=== PATIENT | female | born 1990 | race Native Hawaiian/Other Pacific Islander ===

== ENCOUNTER 2017-08-04 09:31 | Emergency (ER) | payer OTHER ==
[~2017-08-04] VITALS: Ht 147.3 cm; Wt 47.1 kg
[2017-08-04] MEDS ORDERED: PRENTAB40 PO (09:40)
[2017-08-04 10:29] LABS: BASO # 0.1 10^3/uL (0.0-0.2); BASO % 0.9 % (0.0-1.0); EOS # 0.6 10^3/uL (0.0-0.50); IMMATURE GRANULOCYTE % 0.5 % (0-0); LYMPH % 30.5 % (24.0-44.0); MEAN CORPUSCULAR HEMOGLOBIN 29.1 pg (27.0-33.0); MEAN CORPUSCULAR HGB CONC 33.2 g/dl (32.0-36.5); MEAN CORPUSCULAR VOLUME 87.6 fl (80.0-96.0); MONO # 0.4 10^3/uL (0.0-0.8); MONO % 6.3 % (0.0-5.0); NEUTROPHILS # 3.5 10^3/uL (1.8-7.7); NEUTROPHILS % 52.8 % (36.0-66.0); PLATELET COUNT, AUTOMATED 301 10^3/uL (150-450); RED CELL DISTRIBUTION WIDTH 11.3 % (11.5-14.5); WHITE BLOOD COUNT 6.6 10^3/uL (4.0-10.0)
[2017-08-04 11:03] LABS: ANION GAP 7 MEQ/L (8-16); BLOOD UREA NITROGEN 11 MG/DL (7-18); CALCIUM LEVEL 9.3 MG/DL (8.5-10.1); CARBON DIOXIDE LEVEL 27 MEQ/L (21-32); CHLORIDE LEVEL 103 MEQ/L (98-107); CREATININE FOR GFR 0.46 MG/DL (0.55-1.02); GLOMERULAR FILTRATION RATE > 60.0 (>60); GLUCOSE, FASTING 73 MG/DL (70-105); HCG, SERUM QUANTITATIVE 4907 MIU/ML; POTASSIUM SERUM 3.5 MEQ/L (3.5-5.1); SODIUM LEVEL 137 MEQ/L (136-145)
--- NOTE | 2017-08-04 11:18 | REP ---
Clinical: Vaginal bleeding. Comparison: 08/01/2017. Technique: Transabdominal and transvaginal first trimester obstetrical ultrasound including color Doppler evaluation. Findings: Heterogeneous anteverted uterus measures approximately 9.0 x 7.6 x 4.3 cm. Two adjacent presumed gestational sacs are again suggested which contain irregular debris no definable yolk sac or pole. The more fundal sac has a mean sac diameter of 15.3 mm corresponding to 5-week 6 days gestational age while the more inferior sac has not sac diameter of 13.7 mm corresponding to 5 weeks 4 days gestational age. Right maternal ovary appears normal measuring 2.6 x 1.4 x 1.4 cm; RI = 0.64. Left maternal ovary not visualized. No significant pelvic fluid or adnexal mass lesion identified. Impression: Findings again suggest to adjacent gestational sacs with increased debris and no definable yolk sac or pole. Differential diagnosis includes early as well as blighted ovum/early spontaneous . Correlation with serial HCG levels and repeat evaluation may be warranted. Signed by Hemal Chaudhry MD 08/04/2017 11:10 A
[2017-08-04 12:00] VITALS: BP 100/55
== END 2017-08-04 12:01 | disposition home or self-care (01) ==
LOC: M ED 09:31
DX: O20.8 Other hemorrhage in early pregnancy (principal); Z3A.01 Less than 8 weeks gestation of pregnancy; Z79.899 Other long term (current) drug therapy

== ENCOUNTER → 2017-08-13 | Outpatient (REF) | payer OTHER ==
[~2017-08-13] MED LIST: BACT800T5 PO; PRENTAB40 PO
== END ==
LOC: M SFHCLERA 17:20
PROVIDERS: ATTEND Nurse Practitioner Family
DX: R30.0 Dysuria (principal)

== ENCOUNTER 2017-08-14 08:31 | Emergency (ER) | payer OTHER ==
[~2017-08-14] VITALS: Ht 147.3 cm; Wt 47.3 kg
[~2017-08-14 08:31] MED LIST changes: -BACT800T5 PO
--- NOTE | 2017-08-14 10:48 | REP ---
Clinical: Miscarriage with vaginal bleeding. Comparison: 08/04/2017. Technique: Transabdominal pelvic ultrasound followed by transvaginal examination for better evaluation of the endometrium and adnexa with color Doppler evaluation of the ovaries. Findings: Bladder is unremarkable and measures 7.6 x 5.5 x 1.7 cm. Heterogeneous anteverted septated uterus measures 8.5 x 4.4 x 5.1 cm. The endometrial complex measure 15 mm thickness on the right and 3.8 mm thickness on the left. The previously identified presumed twin gestational sacs are no longer evident. Bilateral ovaries are normal in appearance and vascularity without evidence for torsion. Right ovary measures 2.6 x 1.6 x 1.9 cm; R I = 0.66 . Left ovary measures 3.3 x 1.9 x 2.2 cm ; R I = 0.44 . No free fluid or discrete adnexal abnormality noted . Impression: 1. previously noted gestational sacs are no longer apparent and the right endometrial complex is thickened to 15 mm. Retained products of conception versus hemorrhagic debris/clot cannot definitively be excluded and correlation with serial HCG levels may be warranted. Signed by Hemal Chaudhry MD 08/14/2017 10:39 A
[2017-08-14 10:51] LABS: MEAN CORPUSCULAR HEMOGLOBIN 29.8 pg (27.0-33.0); MEAN CORPUSCULAR HGB CONC 33.4 g/dl (32.0-36.5); MEAN CORPUSCULAR VOLUME 89.1 fl (80.0-96.0); PLATELET COUNT, AUTOMATED 345 10^3/uL (150-450); RED CELL DISTRIBUTION WIDTH 11.6 % (11.5-14.5); WHITE BLOOD COUNT 8.2 10^3/uL (4.0-10.0)
[2017-08-14] MEDS ORDERED: BACT800T5 PO (11:44)
[2017-08-14 11:51] VITALS: BP 109/67
== END 2017-08-14 12:00 | disposition home or self-care (01) ==
LOC: M ED 08:31
DX: O03.9 Complete or unspecified spontaneous abortion without complication (principal); N39.0 Urinary tract infection, site not specified

== ENCOUNTER → 2018-04-06 | Outpatient (CLI) | payer OTHER | LOC: M SMT 10:39 | DX: Z36.89 Encounter for other specified antenatal screening (principal); Z3A.00 Weeks of gestation of pregnancy not specified | CPT/HCPCS: 36415 ==

== ENCOUNTER → 2018-05-04 | Outpatient (CLI) | payer OTHER | LOC: M SMT 10:54 | DX: Z36.89 Encounter for other specified antenatal screening (principal); Z82.79 Family history of other congenital malformations, deformations and chromosomal abnormalities | CPT/HCPCS: 36415 ==

== ENCOUNTER → 2018-05-08 | Outpatient (CLI) | payer OTHER | LOC: M RAD 09:04 | DX: Z34.82 Encounter for supervision of other normal pregnancy, second trimester (principal); Z36.89 Encounter for other specified antenatal screening; Z3A.19 19 weeks gestation of pregnancy | CPT/HCPCS: 76811 ==

== ENCOUNTER → 2018-06-11 | Outpatient (CLI) | payer OTHER | LOC: M RAD 10:14 | DX: Z34.82 Encounter for supervision of other normal pregnancy, second trimester (principal); Z36.89 Encounter for other specified antenatal screening; Z3A.23 23 weeks gestation of pregnancy ==

== ENCOUNTER 2018-06-15 12:00 | Emergency (ER) | payer OTHER ==
[2018-06-15] MEDS: NS 1,000 ML IV (14:14)
[2018-06-15 14:35] LABS: INR 0.97
[2018-06-15 14:37] LABS: HEMATOCRIT 30.6 % (36.0-47.0); HEMOGLOBIN 10.3 g/dl (12.0-15.5); MEAN CORPUSCULAR HEMOGLOBIN 28.8 pg (27.0-33.0); MEAN CORPUSCULAR HGB CONC 33.7 g/dl (32.0-36.5); MEAN CORPUSCULAR VOLUME 85.5 fl (80.0-96.0); PLATELET COUNT, AUTOMATED 321 10^3/uL (150-450); RED BLOOD COUNT 3.58 10^6/uL (4.00-5.40); WHITE BLOOD COUNT 11.4 10^3/uL (4.0-10.0)
[2018-06-15 14:38] LABS: D-DIMER QUANT 1092.7 ng/ml (<500)
[2018-06-15 14:46] LABS: ANION GAP 8 MEQ/L (8-16); BLOOD UREA NITROGEN 5 MG/DL (7-18); CALCIUM LEVEL 8.9 MG/DL (8.5-10.1); CARBON DIOXIDE LEVEL 25 MEQ/L (21-32); CHLORIDE LEVEL 106 MEQ/L (98-107); CREATININE FOR GFR 0.45 MG/DL (0.55-1.30); GLOMERULAR FILTRATION RATE > 60.0 (>60); GLUCOSE, FASTING 85 MG/DL (70-100); POTASSIUM SERUM 3.5 MEQ/L (3.5-5.1); SODIUM LEVEL 139 MEQ/L (136-145)
[2018-06-15] MEDS ORDERED: ISOVUE-370 76% 100ML VIAL (Q9967) As Ordered (15:18)
== END 2018-06-15 17:24 | disposition home or self-care (01) ==
LOC: M ED 12:00
DX: O99.511 Diseases of the respiratory system complicating pregnancy, first trimester (principal); O99.89 Other specified diseases and conditions complicating pregnancy, childbirth and the puerperium; R00.0 Tachycardia, unspecified; Z3A.08 8 weeks gestation of pregnancy; Z79.899 Other long term (current) drug therapy
CPT/HCPCS: Q9967

== ENCOUNTER → 2018-06-15 | Outpatient (CLI) | payer OTHER ==
[2018-06-15 18:41] LABS: BASO # 0.1 10^3/uL (0.0-0.2); BASO % 0.5 % (0.0-1.0); EOS # 0.5 10^3/uL (0.0-0.50); EOS % 4.7 % (0.0-3.0); HEMATOCRIT 32.3 % (36.0-47.0); HEMOGLOBIN 10.5 g/dl (12.0-15.5); IMMATURE GRANULOCYTE % 2.8 % (0-3.0); LYMPH # 1.9 10^3/uL (1.5-6.5); LYMPH % 19.4 % (24.0-44.0); MEAN CORPUSCULAR HEMOGLOBIN 28.1 pg (27.0-33.0); MEAN CORPUSCULAR HGB CONC 32.5 g/dl (32.0-36.5); MEAN CORPUSCULAR VOLUME 86.4 fl (80.0-96.0); MONO # 0.8 10^3/uL (0.0-0.8); NEUTROPHILS # 6.5 10^3/uL (1.8-7.7); NEUTROPHILS % 64.6 % (36.0-66.0); PLATELET COUNT, AUTOMATED 328 10^3/uL (150-450); RED BLOOD COUNT 3.74 10^6/uL (4.00-5.40); RED CELL DISTRIBUTION WIDTH 12.1 % (11.5-14.5)
[2018-06-16 06:30] LABS: GLUCOSE CHALLENGE TEST 1 HOUR 131 MG/DL (LESS THAN 140)
== END ==
LOC: M LRY 10:02
DX: Z34.82 Encounter for supervision of other normal pregnancy, second trimester (principal)

== ENCOUNTER → 2018-06-24 | Outpatient (CLI) | payer OTHER ==
[2018-06-24 10:03] LABS: GLUCOSE, FASTING 79 MG/DL (LESS THAN 95)
[2018-06-24 10:38] LABS: 1 HR GLUCOSE 123 MG/DL (LESS THAN 180)
[2018-06-24 12:32] LABS: 2 HR GLUCOSE 118 MG/DL (LESS THAN 155)
[2018-06-24 13:06] LABS: 3 HR GLUCOSE 97 MG/DL (LESS THAN 140)
== END ==
LOC: M LAB 08:07
DX: O09.212 Supervision of pregnancy with history of pre-term labor, second trimester (principal)

== ENCOUNTER → 2018-09-03 | Outpatient (REF) | payer OTHER | LOC: M LAB REF 13:03 | DX: Z36.89 Encounter for other specified antenatal screening (principal) | CPT/HCPCS: 87186 ==

== ENCOUNTER 2018-09-25 05:33 | Inpatient (IN) | payer OTHER ==
[2018-09-25] VITALS (9 sets, daily range): BP systolic 92–115; BP diastolic 55–71
[~2018-09-25] VITALS: Ht 149.9 cm; Wt 57.6 kg
[~2018-09-25 05:33] MED LIST changes: +BACT800T5 PO; +FLUT44IN INH; +PRENTAB55 PO; +prenatl vitamin
[2018-09-25] MEDS ORDERED: BICITRA 30ML SOLN UDC PO ONE (06:00)
[2018-09-25] MEDS ORDERED: LACTATED RINGER'S 1000 ML IV ONE (06:00)
[2018-09-25] MEDS ORDERED: OXYC1TAB23 PO (06:24)
[2018-09-25 06:42] LABS: HEMATOCRIT 33.9 % (36.0-47.0); MEAN CORPUSCULAR HEMOGLOBIN 25.9 pg (27.0-33.0); MEAN CORPUSCULAR HGB CONC 32.4 g/dl (32.0-36.5); MEAN CORPUSCULAR VOLUME 79.8 fl (80.0-96.0); PLATELET COUNT, AUTOMATED 337 10^3/uL (150-450); RED BLOOD COUNT 4.25 10^6/uL (4.00-5.40); WHITE BLOOD COUNT 8.5 10^3/uL (4.0-10.0)
[2018-09-25] MEDS ORDERED: OXYTOCIN INJ 10 UNITS/ML VIAL (J2590) As Ordered ONE (06:54)
[2018-09-25] MEDS ORDERED: ONDANSETRON 4MG/2ML VIAL (J2405) As Ordered ONE (06:58)
[2018-09-25] MEDS ORDERED: LR 1,000 ML IV SCH ×2 (07:00→09:15)
[2018-09-25] MEDS ORDERED: MORPHINE PRES-FREE INJ 10 MG/10 ML VIAL (J2274) As Ordered ONE (07:00)
[2018-09-25] MEDS ORDERED: fentaNYL 100 MCG/2 ML INJECTION (J3010) As Ordered ONE (07:00)
[2018-09-25] MEDS ORDERED: METOCLOPRAMIDE INJ 10MG/2ML VIAL (J2765) IV PRN ×2 (07:30→09:15)
[2018-09-25] MEDS ORDERED: NALOXONE INJ 0.4 MG/1 ML VIAL (J2310) IV PRN ×2 (07:30)
[2018-09-25] MEDS ORDERED: diphenhydrAMINE INJ 50MG/ML VIAL (J1200) IV PRN (07:30)
[2018-09-25] MEDS ORDERED: NALBUPHINE HCL 10 MG/ML AMP (J2300) IV PRN (07:30)
[2018-09-25] MEDS ORDERED: ONDANSETRON 4MG/2ML VIAL (J2405) IV PRN ×3 (07:30→09:15)
[2018-09-25] MEDS ORDERED: KETOROLAC 60 MG/2 ML VIAL (J1885) As Ordered ONE (08:07)
[2018-09-25] MEDS ORDERED: PHENYLephrine HCL 500 MCG/5 ML (100MCG/ML) SYRINGE (J2370) As Ordered ONE (08:33)
[2018-09-25] MEDS ORDERED: OXYTOCIN DRIP 30 UNITS in APPROPRIATE DILUENT 1 EA IV SCH (08:49)
[2018-09-25] MEDS ORDERED: RHOGAM 300 MCG (1500 IU) INJ (J2790) IM SCH (09:00)
[2018-09-25] MEDS ORDERED: MEASLES,MUMPS,RUBELLA VACCINE INJ (MMR-II) (90707) SC SCH (09:00)
[2018-09-25] MEDS ORDERED: PERCOCET 5MG/325MG TAB PO PRN ×3 (09:00→09:15)
[2018-09-25] MEDS: PRENATAL VITAMINS CHEWABLE TABLET PO SCH (09:00)
[2018-09-25] MEDS: DOCUSATE SODIUM 100 MG CAP PO SCH ×2 (09:00→20:13)
[2018-09-25] MEDS ORDERED: fentaNYL 100 MCG/2 ML INJECTION (J3010) IV PRN (09:15)
[2018-09-25] MEDS ORDERED: MEPERIDINE INJ 25 MG/ML VIAL (J2175) IV PRN (09:15)
[2018-09-25] MEDS ORDERED: OXYTOCIN 30 UNITS IN 0.9% NaCl 500ML IV BAG (J2590) As Ordered ONE (09:32)
[2018-09-25] MEDS: LR 1,000 ML IV SCH ×2 (10:57→17:00)
--- NOTE | 2018-09-25 11:20 | RO ---
DATE OF PROCEDURE: 09/25/2018 PREPROCEDURE DIAGNOSIS: 39 weeks gestation, breech presentation. POSTPROCEDURE DIAGNOSIS: 39 weeks gestation, breech presentation. PROCEDURE: Primary low transverse section. SURGEON: Dr. Sriram Paul SENIOR ASSISTANT MANAGER: Ana Nunez CNM and Kailee Hyman DO ANESTHESIA: Spinal. ESTIMATED BLOOD LOSS: 500 mL. URINE OUTPUT: 100 mL. FINDINGS: 6 pound 12 ounce male infant, Apgars 8 and 9. Arcuate uterus. Normal fallopian tubes and ovaries. DESCRIPTION OF PROCEDURE: The patient was taken to the operating room where spinal anesthesia was induced. She was prepped and draped in sterile fashion in the supine position. A Hastings catheter was placed. A Pfannenstiel skin incision was made with the scalpel and carried through to the fascia. The fascia was nicked and extended and the fascia was dissected off the rectus muscles. The rectus muscles divided. The peritoneal cavity was entered. A bladder flap was created. A curvilinear incision was made in the lower uterine segment until clear fluid was noted. This was extended manually. The was delivered from the compound breech position in standard maneuvers without difficulty. The cord was doubly clamped and cut. The was handed off to the awaiting nurses. The placenta was expressed. The uterus was exteriorized and cleared of clots and debris. The uterine incision was closed with #0 Vicryl in a running locked fashion. A second imbricating layer of #0 Vicryl was placed. The uterus was placed back in the abdominal cavity. The peritoneal cavity closed with #2-0 Vicryl in a running fashion. The fascia was closed with #0 Vicryl in a running fashion. The deep layer was irrigated and closed with #2-0 chromic. The skin was closed with #4-0 Monocryl subcuticular sutures. Sponge, instrument and needle counts were correct. Ana Nunez CNM, assisted with all aspects of the procedure from beginning to end. She assisted with creating all layers of the abdomen and subsequent delivery of the fetus. She assisted with closure of all layers.
[2018-09-25] MEDS: KETOROLAC 30 MG/ML VIAL (J1885) IV SCH ×2 (13:51→20:13)
[2018-09-26 02:00] VITALS: BP 96/55
[2018-09-26] MEDS: KETOROLAC 30 MG/ML VIAL (J1885) IV SCH (02:02)
[2018-09-26 05:41] VITALS: BP 107/51
[2018-09-26 06:46] LABS: HEMATOCRIT 28.2 % (36.0-47.0); HEMOGLOBIN 9.1 g/dl (12.0-15.5); MEAN CORPUSCULAR HEMOGLOBIN 26.5 pg (27.0-33.0); MEAN CORPUSCULAR HGB CONC 32.3 g/dl (32.0-36.5); MEAN CORPUSCULAR VOLUME 82.2 fl (80.0-96.0); PLATELET COUNT, AUTOMATED 262 10^3/uL (150-450); RED BLOOD COUNT 3.43 10^6/uL (4.00-5.40); WHITE BLOOD COUNT 11.3 10^3/uL (4.0-10.0)
--- NOTE | 2018-09-26 07:09 | IPNPDOC ---
Text Note Date of Service The patient was seen on 09/26/18. NOTE PO #1 Feels well. Adequate pain management. OOB, voiding. VSS, afebrile, normotensive Breasts soft, nipples intact Fundus firm, NT @ U Dressing intact, old drainage noted R side Lochia rubra light without odor PO #1 Routine care. Anticipate D/C in am VS,Fishbone, I+O VS, Fishbone, I+O Laboratory Tests 09/26/18 06:26 Red Blood Count 3.43 L, Mean Corpuscular Volume 82.2, Mean Corpuscular Hemoglobin 26.5 L, Mean Corpuscular Hemoglobin Concent 32.3, Red Cell Distribution Width 15.3 H Vital Signs Date Time Temp Pulse Resp B/P (MAP) Pulse Ox O2 Delivery O2 Flow Rate FiO2 09/26/18 05:41 97.9 62 16 107/51 (69) I&O- Last 24 Hours up to 6 AM 09/26/18 06:00 Intake Total 831 ml Output Total 3245 ml Balance -2414 ml Kathryn Alexis CNM Sep 26, 2018 07:09
[2018-09-26] MEDS: DOCUSATE SODIUM 100 MG CAP PO SCH ×2 (08:23→20:01)
[2018-09-26] MEDS: PRENATAL VITAMINS CHEWABLE TABLET PO SCH (08:23)
[2018-09-26] MEDS ORDERED: ADACEL/BOOSTRIX VACCINE (DIPHTH/PERTUSS/ACELL/TETANUS)0.5ML SYR (90715) IM ONE (09:00)
[2018-09-26 10:00] VITALS: BP 101/52
[2018-09-26] MEDS: IBUPROFEN 800 MG TAB PO SCH ×2 (10:44→18:35)
[2018-09-26 18:00] VITALS: BP 94/53
[2018-09-27] MEDS: IBUPROFEN 800 MG TAB PO SCH ×2 (03:18→10:48)
[2018-09-27 05:59] VITALS: BP 108/59
[2018-09-27] MEDS: DOCUSATE SODIUM 100 MG CAP PO SCH (09:13)
[2018-09-27] MEDS: PRENATAL VITAMINS CHEWABLE TABLET PO SCH (09:13)
--- NOTE | 2018-09-27 10:29 | NUR ---
Discharge Summary Date of admission: 09/25/2018 Date of discharge:, 09/27/2018 Admitting diagnosis: Term gestation, breech presentation Discharge diagnosis: Status post primary low transverse section. Single, liveborn delivered via . Indication: Breech Discharge Summary: 28 year-old G5 now P3. She was admitted on 09/25/2018 at 39+ weeks EGA with a diagnosis of breech presentation. This prompted a delivery under spinal anesthesia. The delivery was uncomplicated. The patient's intraoperative and postoperative courses were uncomplicated. By postoperative day #2, the patient was meeting all discharge criteria. Her pain was well controlled on oral pain meds. She was ambulating without assistance, voiding spontaneously, tolerating a regular diet, and her lochia/bleeding was minimal. Physical exam on date of discharge: Vitals: normotensive, normal HR, afebrile Heart: regular rate and rhythm with no murmurs, gallops, rubs. Lungs: clear to auscultation bilaterally, no wheezes, crackles, rales, ronchi Abd: soft, non-distended, appropriately tender. Normoactive bowel sounds. Incision: clean, dry, intact without surrounding erythema or induration. Ext: non-edematous, non-tender, negative Janessa's sign bilaterally Assessment/Plan: 28 year-old G5 now P3 status post repeat low transverse delivery on 09/25/2018 now postoperative day #2. Hemodynamically stable, afebrile, with good pain control. Meeting all discharge criteria. -Routine infectious, fever, pain, and bleeding precautions reviewed -Surgical wound/incisional care / precautions reviewed. -Discharge medications: Percocet, Motrin, Colace. -Outpatient follow up in 1-2 weeks for a routine incision / postoperative check. Dr. Ike Talley, DO, FACOG
[2018-09-27] MEDS ORDERED: IBUP-1114 PO (10:32)
== END 2018-09-27 13:30 | disposition home or self-care (01) | DRG 773 ==
LOC: M LDI 05:33 → M OBS 10:47
PROVIDERS: ADMIT Specialist; ATTEND Specialist
PROC: 10D00Z1 Extraction of Products of Conception, Low, Open Approach (ICD-10-PCS; principal; 2018-09-25 07:30)
DX: O32.1XX0 Maternal care for breech presentation, not applicable or unspecified (principal); Z3A.39 39 weeks gestation of pregnancy; Z37.0 Single live birth

== ENCOUNTER → 2018-11-26 | Outpatient (REF) | payer OTHER ==
[~2018-11-26] MED LIST changes: +ACET500T15 PO; +IBUP-1114 PO; +OXYC1TAB23 PO; +ZOFR4TAB16 PO
== END ==
LOC: M SFHCLERA 16:43
PROVIDERS: ATTEND Physician Assistant
DX: B34.9 Viral infection, unspecified (principal)

== ENCOUNTER 2018-12-01 11:23 | Emergency (ER) | payer OTHER ==
[~2018-12-01] VITALS: Ht 147.3 cm; Wt 50.6 kg
[~2018-12-01 11:23] MED LIST changes: -ACET500T15 PO; -ZOFR4TAB16 PO
[2018-12-01] MEDS ORDERED: ACET500T15 PO (11:28)
[2018-12-01] MEDS ORDERED: ACETAMINOPHEN TAB 650MG DOSE (2X325MG) PO ONE (12:30)
[2018-12-01] MEDS ORDERED: ONDANSETRON 4 MG ORAL DISINTEGRATING TAB (Q0162 PER 1MG) PO ONE (12:30)
--- NOTE | 2018-12-01 12:46 | REP ---
CT Head without contrast HISTORY: Trauma COMPARISON: None There is no intraparenchymal hemorrhage, acute infarct, mass or midline shift. The ventricular system is normal in appearance. There is no extra cerebral collection. There is no fracture. The visualized sinuses are clear. IMPRESSION: There is no intracranial lesion. Electronically Signed by Sriram Andrade MD 12/01/2018 12:37 P
[2018-12-01] MEDS ORDERED: ZOFR4TAB16 PO (13:35)
[2018-12-01 13:49] VITALS: BP 104/65
== END 2018-12-01 13:51 | disposition home or self-care (01) ==
LOC: M ED 11:23
DX: S06.0X0A Concussion without loss of consciousness, initial encounter (principal); W00.0XXA Fall on same level due to ice and snow, initial encounter; Y92.018 Other place in single-family (private) house as the place of occurrence of the external cause
CPT/HCPCS: 70450; 99283; Q0162

== ENCOUNTER → 2019-04-15 | Outpatient (CLI) | payer OTHER ==
[~2019-04-15] MED LIST changes: +ACET500T15 PO; +KEFL500C17 PO; +ZOFR4TAB16 PO
== END ==
LOC: M LRY 18:42
PROVIDERS: ATTEND Specialist
DX: O20.0 Threatened abortion (principal); Z3A.00 Weeks of gestation of pregnancy not specified

== ENCOUNTER 2019-04-21 13:46 | Emergency (ER) | payer OTHER ==
[~2019-04-21] VITALS: Ht 147.3 cm; Wt 49.5 kg
[~2019-04-21 13:46] MED LIST changes: -KEFL500C17 PO
[2019-04-21 14:30] LABS: BASO # 0.1 10^3/uL (0.0-0.2); BASO % 0.6 % (0.0-1.0); EOS # 0.6 10^3/uL (0.0-0.50); EOS % 6.1 % (0.0-3.0); HEMOGLOBIN 11.9 g/dl (12.0-15.5); LYMPH # 2.5 10^3/uL (1.5-6.5); LYMPH % 26.9 % (24.0-44.0); MEAN CORPUSCULAR HEMOGLOBIN 27.9 pg (27.0-33.0); MEAN CORPUSCULAR HGB CONC 33.1 g/dl (32.0-36.5); MEAN CORPUSCULAR VOLUME 84.5 fl (80.0-96.0); MONO # 0.7 10^3/uL (0.0-0.8); MONO % 7.3 % (0.0-5.0); NEUTROPHILS # 5.6 10^3/uL (1.8-7.7); NEUTROPHILS % 58.9 % (36.0-66.0); PLATELET COUNT, AUTOMATED 323 10^3/uL (150-450); RED BLOOD COUNT 4.26 10^6/uL (4.00-5.40); WHITE BLOOD COUNT 9.4 10^3/uL (4.0-10.0)
[2019-04-21 15:21] LABS: BLOOD UREA NITROGEN 10 MG/DL (7-18); CALCIUM LEVEL 9.4 MG/DL (8.5-10.1); CARBON DIOXIDE LEVEL 24 MEQ/L (21-32); CHLORIDE LEVEL 105 MEQ/L (98-107); GLOMERULAR FILTRATION RATE > 60.0 (>60); GLUCOSE, FASTING 88 MG/DL (70-100); HCG, SERUM QUANTITATIVE 84689 MIU/ML; POTASSIUM SERUM 3.7 MEQ/L (3.5-5.1); SODIUM LEVEL 137 MEQ/L (136-145)
--- NOTE | 2019-04-21 17:03 | REP ---
Clinical: Vaginal bleeding for dating and viability. Technique: Transabdominal and transvaginal first trimester obstetrical ultrasound with color Doppler evaluation. Findings: Anteverted uterus measures 11.5 x 4.8 x 8.0 cm. Intrauterine identified including gestational sac with yolk sac and pole. CRL of 12 mm corresponds to 7 weeks 2 days gestational age with estimated date of delivery 12/06/2019. heart rate equals 145 bpm. There is a large complex subchorionic hemorrhage measuring 4.8 x 2.4 x 5.7 cm lateral to the gestational sac. Maternal ovaries are normal in appearance and vascularity. Right ovary measures 3.7 x 2.1 x 1.8 cm; RI 0.46. Right corpus luteal cyst noted. Left ovary measures approximately 2.2 x 1.0 x 2.0 cm; RI 0.45. Impression: 1. Live intrauterine measuring at 7 weeks 2 days gestational age. 2. Large complex subchorionic hemorrhage. Electronically Signed by Hemal Chaudhry MD 04/21/2019 04:54 P
[2019-04-21] MEDS ORDERED: KEFL500C17 PO (17:18)
[2019-04-21 17:19] VITALS: BP 130/80
== END 2019-04-21 17:27 | disposition home or self-care (01) ==
LOC: M ED 13:46
DX: O20.0 Threatened abortion (principal); O20.8 Other hemorrhage in early pregnancy; O23.41 Unspecified infection of urinary tract in pregnancy, first trimester; Z3A.01 Less than 8 weeks gestation of pregnancy

== ENCOUNTER → 2019-05-05 | Outpatient (CLI) | payer OTHER ==
[~2019-05-05] MED LIST changes: +KEFL500C17 PO
[2019-05-05 18:04] LABS: BASO # 0.1 10^3/uL (0.0-0.2); BASO % 0.7 % (0.0-1.0); EOS # 0.5 10^3/uL (0.0-0.50); EOS % 5.1 % (0.0-3.0); HEMATOCRIT 34.9 % (36.0-47.0); HEMOGLOBIN 11.6 g/dl (12.0-15.5); LYMPH # 2.4 10^3/uL (1.5-6.5); LYMPH % 26.2 % (24.0-44.0); MEAN CORPUSCULAR HEMOGLOBIN 27.6 pg (27.0-33.0); MEAN CORPUSCULAR HGB CONC 33.2 g/dl (32.0-36.5); MEAN CORPUSCULAR VOLUME 83.1 fl (80.0-96.0); MONO # 0.7 10^3/uL (0.0-0.8); MONO % 7.3 % (0.0-5.0); NEUTROPHILS # 5.4 10^3/uL (1.8-7.7); NEUTROPHILS % 60.4 % (36.0-66.0); PLATELET COUNT, AUTOMATED 376 10^3/uL (150-450)
[2019-05-06 11:49] LABS: HIV 1&2 SCREEN CENTAUR NEGATIVE (NEGATIVE); RUBELLA IgG QUALITATIVE IMMUNE (IMMUNE)
[2019-05-07 11:49] LABS: HEPATITIS C VIRUS ABY INDEX 0.1 INDEX (<0.8)
== END ==
LOC: M SMT 15:16
PROVIDERS: ATTEND Advanced Practice Midwife
DX: Z34.81 Encounter for supervision of other normal pregnancy, first trimester (principal); Z3A.09 9 weeks gestation of pregnancy
CPT/HCPCS: 36415; 85025; 86762; 86780; 86803; 86850; 87340; 87389; G0123

== ENCOUNTER → 2019-05-20 | Outpatient (CLI) | payer OTHER ==
[2019-05-20 20:16] LABS: CHLAMYDIA DNA AMPLIFICATION NEGATIVE (NEGATIVE); GC DNA AMPLIFICATION NEGATIVE (NEGATIVE)
== END ==
LOC: M SMT 15:37
PROVIDERS: ATTEND Advanced Practice Midwife
DX: Z13.79 Encounter for other screening for genetic and chromosomal anomalies (principal)

== ENCOUNTER → 2019-07-05 | Outpatient (CLI) | payer OTHER ==
--- NOTE | 2019-07-06 07:27 | REP ---
Clinical: Anatomical evaluation. Comparison: 04/21/2019 . Findings: Examination demonstrates a single live intrauterine in transverse (head to maternal right) presentation. motion is identified by technologist. Placenta is noted anterior and grade I without evidence for placenta previa or abruption. Amniotic fluid volume is normal. Cervix measures 4.3 cm in length and appears closed. Nuchal cord cannot be excluded. Gestational age by LMP 19 weeks 2 days with SUSA[facility] 11/27/2019 . Gestational age by first US and current measurements 18 weeks 0 days with [facility] 12/06/2019 . FHR equals 146 beats per minute. BPD 4.0 cm 18 weeks 1 day HC 14.8 cm 17 weeks 6 days AC 12.5 cm 18 weeks 1 day FL 2.7 cm 18 weeks 1 day HL 2.6 cm 18 weeks 0 days HC/AC ratio 1.19 Estimated weight 223 grams ( 15th percentile based on age by first ultrasound and current measurements ). Anatomical assessment demonstrates normal structures including cranium, choroid plexus, cavum, cerebellum/posterior fossa, facial features, lungs, four-chamber heart/ventricular outflow tracts, diaphragm, stomach, cord insertion/three-vessel cord, kidneys/bladder, spine, and extremities. Impression: Single live intrauterine in transverse lie demonstrating appropriate interval growth when compared to first ultrasound. Anatomical assessment is complete and normal. Electronically Signed by Hemal Chaudhry MD 07/06/2019 07:18 A
== END ==
LOC: M RAD 13:17
PROVIDERS: ATTEND Specialist
DX: O09.211 Supervision of pregnancy with history of pre-term labor, first trimester (principal); Z3A.18 18 weeks gestation of pregnancy